=== PATIENT | female | born 1950 | race Caucasian/White ===

== ENCOUNTER 2016-11-21 08:13 | Outpatient (CLI) | payer MEDICARE | END 2016-11-21 08:14 | disposition home or self-care (01) | DX: R19.7 Diarrhea, unspecified (principal) ==

== ENCOUNTER 2017-10-31 08:00 | Outpatient (CLI) | payer MEDICARE ==
[2017-10-31 15:24] LABS: BASOPHILS # (AUTO) 0.1 10^3/uL (0.0-0.1); BASOPHILS % (AUTO) 1.2 %; EOSINOPHILS # (AUTO) 0.1 10^3/uL (0.0-0.7); EOSINOPHILS % (AUTO) 2.1 %; HGB - HEMOGLOBIN 13.6 g/dL (12.0-16.0); LYMPHOCYTES # (AUTO) 2.2 10^3/uL (1.5-3.5); LYMPHOCYTES % (AUTO) 33.7 %; MEAN CORPUSCULAR HGB CONC 34.2 g/dL (32.0-36.0); MEAN CORPUSCULAR VOLUME 96.5 fL (81.0-99.0); MEAN PLATELET VOLUME 9.7 fL (7.9-10.8); MONOCYTES # (AUTO) 0.5 10^3/uL (0.0-1.0); MONOCYTES % (AUTO) 8.1 %; NEUTROPHILS # (AUTO) 3.5 10^3/uL (1.5-6.6); NEUTROPHILS % (AUTO) 54.9 %; RED BLOOD COUNT 4.14 10^6/uL (4.20-5.40); RED CELL DISTRIBUTION WIDTH 12.7 % (12.0-15.0); UNCORRECTED WHITE BLOOD COUNT 6.4 x10^3/uL; WHITE BLOOD COUNT 6.4 x10^3/uL (4.8-10.8)
[2017-10-31 15:36] LABS: ALBUMIN/GLOBULIN RATIO 1.3 (1.0-2.2); BILIRUBIN,TOTAL 0.6 mg/dL (0.2-1.0); BUN - BLOOD UREA NITROGEN 16 mg/dL (6-20); CALCIUM 9.9 mg/dL (8.5-10.3); CARBON DIOXIDE - CO2 29 mmol/L (21-32); CHLORIDE 104 mmol/L (101-111); CHOL/HDL RATIO 3.9 (<4.4); CHOLESTEROL 243 mg/dL; CREATININE 0.6 mg/dL (0.4-1.0); GFR - MDRD 99 (>89); GLUCOSE 113 mg/dL (70-100); HDL CHOLESTEROL 62 mg/dL; LDL/HDL RATIO 2.5 (<4.4); POTASSIUM 4.2 mmol/L (3.5-5.0); SODIUM 139 mmol/L (135-145); TOTAL PROTEIN 7.7 g/dL (6.7-8.2); TRIGLYCERIDES 142 mg/dL; VLDL CHOLESTEROL 28 mg/dL
== END 2017-10-31 08:01 ==
LOC: LAB.WCP 08:00
PROVIDERS: ATTEND Physician Assistant Medical
DX: I10 Essential (primary) hypertension (principal); R05 Cough
CPT/HCPCS: 36415; 80053; 80061; 85025

== ENCOUNTER 2017-12-10 10:31 | Outpatient (CLI) | payer MEDICARE ==
[2017-12-10] MEDS ORDERED: IOPAMIDOL-300 100 ML VIAL ONE (10:51)
[2017-12-10] MEDS ORDERED: IOPAMIDOL-300 50 ML VIAL ONE (10:52)
[2017-12-10 11:02] LABS: CREATININE 0.6 mg/dL (0.4-1.0)
[2017-12-10] MEDS: IOPAMIDOL-300 100 ML VIAL IVP ONE (12:48)
[2017-12-10] MEDS: IOPAMIDOL-300 50 ML VIAL PO ONE (12:48)
--- NOTE | 2017-12-10 18:26 | CT Report ---
DATE OF SERVICE: 12/10/2017 CT ABDOMEN AND PELVIS WITH CONTRAST: 12/10/2017 CLINICAL INDICATION: Bloody diarrhea, abdominal pain, colon cancer. COMPARISON: 05/25/2014 TECHNIQUE: Axial CT images of the abdomen and pelvis were obtained with 100 mL Isovue 300 intravenously as well as oral contrast. In accordance with CT protocol optimization, one or more of the following dose reduction techniques were utilized for this exam: Automated exposure control, adjustment of mA and/or KV based on patient size, or use of iterative reconstructive technique. Limited evaluation of the lung bases demonstrates a small hiatal hernia. ABDOMEN: The liver again demonstrates diffuse fatty infiltration. No intrahepatic biliary dilatation or focal parenchymal lesion is seen. A small hypodensity in the lateral spleen is stable. The pancreas, kidneys and adrenal glands are unremarkable. The gallbladder is not dilated. No bowel dilatation, free gas, or free fluid is present. No abdominal adenopathy is appreciated. PELVIS: Diverticulosis is again seen without CT evidence of diverticulitis. No pelvic adenopathy or free fluid is present. Osseous structures demonstrate degenerative changes. IMPRESSION: STABLE DIVERTICULOSIS, WITHOUT CT EVIDENCE OF DIVERTICULITIS. FATTY INFILTRATION OF THE LIVER. NO ADENOPATHY OR FOCAL HEPATIC LESION. TD: 12/10/2017 18:25
== END 2017-12-10 10:32 | disposition home or self-care (01) ==
LOC: DI 10:31
PROVIDERS: ATTEND Internal Medicine Gastroenterology
DX: K57.30 Diverticulosis of large intestine without perforation or abscess without bleeding (principal); R10.9 Unspecified abdominal pain; C18.2 Malignant neoplasm of ascending colon; K76.0 Fatty (change of) liver, not elsewhere classified
CPT/HCPCS: 36415; 74177; 82565; 84520; Q9967

== ENCOUNTER 2017-12-25 12:55 | Day surgery (SDC) | payer MEDICARE ==
[2017-12-25] MEDS ORDERED: LACTATED RINGERS 1,000 ML IV ONE (13:31)
[2017-12-25] MEDS ORDERED: fentaNYL 100 MCG/2 ML VIAL IVP ONE (14:22)
[2017-12-25] MEDS ORDERED: MIDAZOLAM 2 MG/2 ML VIAL IVP ONE (14:22)
[2017-12-25 15:35] VITALS: BP 142/68
--- NOTE | 2017-12-25 19:01 | PROCEDURE REPORT ---
DATE OF SERVICE: 12/25/2017 Physician: Reggie Juan MD PROCEDURE PERFORMED: Colonoscopy. ENDOSCOPIST: Reggie Juan MD PRIMARY CARE PHYSICIAN: Jenny Casey PA-C INDICATION: History of colon cancer, status post right hemicolectomy. PREMEDICATIONS: Fentanyl 200 mcg,Versed 7 mg IV titration. TOTAL SEDATION TIME: 22 minutes DESCRIPTION OF PROCEDURE: After informed consent was obtained, the patient was placed in the left lateral decubitus position. The video colonoscope was introduced into the rectum and slowly passed the anastomosis. Preparation was good. On slow withdrawal, mucosa was carefully examined. The scope was removed. The patient tolerated the procedure well. BLOOD LOSS: None. ANESTHESIA: None. FINDINGS 1. Normal anastomosis. 2. Scattered diverticulosis. 3. Otherwise negative colonoscopy to cecum. The patient will need followup colonoscopy in 3 years. Of note is that her epigastric pain resolved on ranitidine. cc: Jenny Casey PA-C TD: 12/25/2017 18:59
== END 2017-12-25 12:56 | disposition home or self-care (01) ==
LOC: SDS 12:55
PROVIDERS: ATTEND Internal Medicine Gastroenterology
PROC: 0DJD8ZZ Inspection of Lower Intestinal Tract, Via Natural or Artificial Opening Endoscopic (ICD-10-PCS; principal; 2017-12-25 14:00)
DX: Z12.11 Encounter for screening for malignant neoplasm of colon (principal); Z85.038 Personal history of other malignant neoplasm of large intestine; K57.30 Diverticulosis of large intestine without perforation or abscess without bleeding
CPT/HCPCS: G0105; J7120

== ENCOUNTER 2018-03-12 13:21 | Outpatient (CLI) | payer MEDICARE ==
--- NOTE | 2018-03-12 16:43 | Mammography Report ---
SCREENING MAMMOGRAM: 03/12/2018 CLINICAL INDICATION: A 68-year-old with history of benign biopsy, for screening. COMPARISON: 12/2014, 06/2013, 05/2011, 04/2010 FINDINGS: The breasts demonstrate scattered fibroglandular densities bilaterally. Biopsy marker in the right upper inner central breast is stable. Coarse, typically benign calcifications are present. No suspicious masses, clustered microcalcifications, or regions of architectural distortion are identified. IMPRESSION: BENIGN FINDINGS. RECOMMENDATION: Routine annual screening unless otherwise clinically indicated. BI-RADS CATEGORY 2 BENIGN FINDINGS. STANDARD QUALIFYING STATEMENTS: 1. This examination was reviewed with the aid of Computer-Aided Detection (CAD). 2. A negative or benign imaging report should not delay biopsy if clinically suspicious findings are present. Consider surgical consultation if warranted. More than 5% of cancers are not identified by imaging. 3. Dense breasts may obscure an underlying neoplasm. TD: 03/12/2018 16:41
== END 2018-03-12 13:22 | disposition home or self-care (01) ==
LOC: DI.N 13:21
PROVIDERS: ATTEND Physician Assistant Medical
DX: Z12.31 Encounter for screening mammogram for malignant neoplasm of breast (principal)
CPT/HCPCS: 77067

== ENCOUNTER 2018-06-17 08:20 | Outpatient (CLI) | payer MEDICARE ==
[2018-06-17 13:58] LABS: BASOPHILS # (AUTO) 0.1 10^3/uL (0.0-0.1); BASOPHILS % (AUTO) 1.3 %; EOSINOPHILS # (AUTO) 0.2 10^3/uL (0.0-0.7); EOSINOPHILS % (AUTO) 2.7 %; HGB - HEMOGLOBIN 13.8 g/dL (12.0-16.0); LYMPHOCYTES # (AUTO) 2.1 10^3/uL (1.5-3.5); LYMPHOCYTES % (AUTO) 35.6 %; MEAN CORPUSCULAR HEMOGLOBIN 33.3 pg (27.0-31.0); MEAN CORPUSCULAR HGB CONC 34.5 g/dL (32.0-36.0); MEAN CORPUSCULAR VOLUME 96.6 fL (81.0-99.0); MEAN PLATELET VOLUME 9.4 fL (7.9-10.8); MONOCYTES # (AUTO) 0.5 10^3/uL (0.0-1.0); MONOCYTES % (AUTO) 8.7 %; NEUTROPHILS # (AUTO) 3.1 10^3/uL (1.5-6.6); NEUTROPHILS % (AUTO) 51.7 %; PLT - PLATELET COUNT 290 10^3/uL (130-450); RED BLOOD COUNT 4.15 10^6/uL (4.20-5.40); RED CELL DISTRIBUTION WIDTH 13.2 % (12.0-15.0); WHITE BLOOD COUNT 5.9 x10^3/uL (4.8-10.8)
[2018-06-17 14:13] LABS: ALBUMIN 4.3 g/dL (3.2-5.5); ALBUMIN/GLOBULIN RATIO 1.2 (1.0-2.2); ALKALINE PHOSPHATASE 66 IU/L (42-121); ALT ALANINE AMINOTRANSFERASE 34 IU/L (10-60); AST ASPARTATE AMINOTRANSFERASE 26 IU/L (10-42); BUN - BLOOD UREA NITROGEN 11 mg/dL (6-20); CALCIUM 9.7 mg/dL (8.5-10.3); CARBON DIOXIDE - CO2 29 mmol/L (21-32); CHLORIDE 101 mmol/L (101-111); CHOL/HDL RATIO 3.6 (<4.4); CHOLESTEROL 243 mg/dL; CREATININE 0.6 mg/dL (0.4-1.0); GFR - MDRD 99 (>89); GLUCOSE 115 mg/dL (70-100); HDL CHOLESTEROL 68 mg/dL; LDL CHOLESTEROL,CALCULATED 140 mg/dL; LDL/HDL RATIO 2.1 (<4.4); SODIUM 139 mmol/L (135-145); TOTAL PROTEIN 7.9 g/dL (6.7-8.2); VLDL CHOLESTEROL 35 mg/dL
== END 2018-06-17 08:21 | disposition home or self-care (01) ==
LOC: LAB.WCP 08:20
PROVIDERS: ATTEND Physician Assistant Medical
DX: I10 Essential (primary) hypertension (principal)
CPT/HCPCS: 36415; 80053; 80061; 83721; 85025

== ENCOUNTER 2018-10-08 07:14 | Outpatient (CLI) | payer MEDICARE ==
[2018-10-08 13:54] LABS: CALCIUM 9.8 mg/dL (8.5-10.3); CREATININE 0.6 mg/dL (0.4-1.0)
[2018-10-08 13:56] LABS: HB2 TOTAL 14.3 g/dL; HEMOGLOBIN A1C 0.53 g/dL; HEMOGLOBIN A1C % 5.5 % (4.6-6.2)
== END 2018-10-08 23:59 | disposition home or self-care (01) ==
LOC: LAB.WCP 07:14
PROVIDERS: ATTEND Physician Assistant Medical
DX: R73.09 Other abnormal glucose (principal)
CPT/HCPCS: 36415; 80048; 83036

== ENCOUNTER 2018-10-22 12:54 | Outpatient (CLI) | payer MEDICARE | END 2018-10-22 12:55 | disposition home or self-care (01) | LOC: RT 12:54 | PROVIDERS: ATTEND Physician Assistant Medical | DX: R05 Cough (principal) | CPT/HCPCS: 94010; 94729 ==

== ENCOUNTER 2019-04-27 12:09 | Outpatient (CLI) | payer MEDICARE ==
--- NOTE | 2019-04-28 14:07 | XRAY Report ---
Reason: ANKLE PAIN,RIGHT Procedure Date: 04/27/2019 Accession Number: [id number] / [id number] Procedure: WCP - Ankle 3 View RT CPT Code: FULL RESULT: EXAM: RIGHT ANKLE RADIOGRAPHY EXAM DATE: 04/27/2019 12:18 PM. CLINICAL HISTORY: Chronic lateral malleolus pain. No known injury. COMPARISON: None. TECHNIQUE: 3 views. FINDINGS: Bones: There is mild inferior calcaneal spurring. No fracture is detected. Joints: Remote posttraumatic changes are seen along the inferior medial malleolus. Similarly, osteophytosis along the lateral malleolus is likely posttraumatic. The ankle mortise is symmetric. Soft Tissues: Normal. No soft tissue swelling. IMPRESSION: Posttraumatic changes of the ankle with osteophytosis along the lateral malleolus. RADIA
== END 2019-04-27 12:10 | disposition home or self-care (01) ==
LOC: DI.WCP 12:09
PROVIDERS: ATTEND Physician Assistant
DX: M25.771 Osteophyte, right ankle (principal)

== ENCOUNTER 2019-05-01 14:39 | Outpatient (CLI) | payer MEDICARE ==
[2019-05-01 19:22] LABS: CALCIUM 10.3 mg/dL (8.5-10.3); CREATININE 0.6 mg/dL (0.4-1.0)
[2019-05-01 20:03] LABS: HB2 TOTAL 13.4 g/dL; HEMOGLOBIN A1C 0.55 g/dL; HEMOGLOBIN A1C % 5.9 % (4.6-6.2)
== END 2019-05-01 14:40 | disposition home or self-care (01) ==
LOC: LAB.WCP 14:39
PROVIDERS: ATTEND Physician Assistant Medical
DX: R73.03 Prediabetes (principal)
CPT/HCPCS: 36415; 80048; 83036

== ENCOUNTER 2019-06-19 09:10 | Outpatient (CLI) | payer MEDICARE ==
--- NOTE | 2019-06-22 12:16 | Mammography Report ---
Reason: SCREENING MAMMO Procedure Date: 06/19/2019 Accession Number: [id number] / [id number] Procedure: MGN - Screening Mammo Dig Bilat CPT Code: FULL RESULT: EXAM: Screening Mammo Dig Bilat DATE: 06/19/2019 9:32 AM CLINICAL HISTORY: Routine screening. Personal history of colon cancer. No reported personal or family history of breast cancer. History of prior benign right breast biopsy. TECHNIQUE: (B) - Bilateral CC and MLO views were obtained. COMPARISON: 12/28/2014 and 06/09/2013. PARENCHYMAL PATTERN: (A) - The breasts demonstrate scattered fibroglandular densities bilaterally. FINDINGS: Bilateral breasts: Stable biopsy marker medial upper right breast. There are no suspicious masses, calcifications, or areas of distortion. IMPRESSION: Benign findings. BI-RADS category 2. RECOMMENDATION: (ANNUAL) - Recommend routine annual screening mammography. BI-RADS CATEGORY: (2) - Benign Findings. STANDARD QUALIFYING STATEMENTS: 1. This examination was not reviewed with the aid of Computer-Aided Detection (CAD). 2. A negative or benign imaging report should not preclude biopsy if clinically suspicious findings are present. 3. Dense breasts may obscure an underlying neoplasm. 4. This examination was reviewed without the aid of 3D breast imaging (tomosynthesis).
== END 2019-06-19 09:11 | disposition home or self-care (01) ==
LOC: DI.N 09:10
DX: Z12.31 Encounter for screening mammogram for malignant neoplasm of breast (principal); Z85.038 Personal history of other malignant neoplasm of large intestine
CPT/HCPCS: 77067

== ENCOUNTER 2020-05-02 08:44 | Outpatient (CLI) | payer MEDICARE ==
[2020-05-02 12:51] LABS: BASOPHILS # (AUTO) 0.1 10^3/uL (0.0-0.1); BASOPHILS % (AUTO) 1.5 %; EOSINOPHILS # (AUTO) 0.2 10^3/uL (0.0-0.7); EOSINOPHILS % (AUTO) 2.4 %; HGB - HEMOGLOBIN 13.7 g/dL (12.0-16.0); LYMPHOCYTES # (AUTO) 2.2 10^3/uL (1.5-3.5); MEAN CORPUSCULAR HEMOGLOBIN 32.2 pg (27.0-31.0); MEAN CORPUSCULAR HGB CONC 33.7 g/dL (32.0-36.0); MEAN CORPUSCULAR VOLUME 95.8 fL (81.0-99.0); MEAN PLATELET VOLUME 11.4 fL (7.9-10.8); MONOCYTES # (AUTO) 0.6 10^3/uL (0.0-1.0); MONOCYTES % (AUTO) 8.8 %; NEUTROPHILS # (AUTO) 3.7 10^3/uL (1.5-6.6); NEUTROPHILS % (AUTO) 54.9 %; PLT - PLATELET COUNT 346 10^3/uL (130-450); RED BLOOD COUNT 4.25 10^6/uL (4.20-5.40); RED CELL DISTRIBUTION WIDTH 12.8 % (12.0-15.0); WHITE BLOOD COUNT 6.7 x10^3/uL (4.8-10.8)
[2020-05-02 13:02] LABS: ALBUMIN 4.9 g/dL (3.2-5.5); ALBUMIN/GLOBULIN RATIO 1.6 (1.0-2.2); ALKALINE PHOSPHATASE 89 IU/L (42-121); ALT ALANINE AMINOTRANSFERASE 36 IU/L (10-60); AST ASPARTATE AMINOTRANSFERASE 30 IU/L (10-42); BUN - BLOOD UREA NITROGEN 12 mg/dL (6-20); CALCIUM 9.9 mg/dL (8.5-10.3); CARBON DIOXIDE - CO2 26 mmol/L (21-32); CHLORIDE 102 mmol/L (101-111); CHOL/HDL RATIO 3.1 (<4.4); CHOLESTEROL 223 mg/dL; CREATININE 0.6 mg/dL (0.4-1.0); GLUCOSE 127 mg/dL (70-100); HDL CHOLESTEROL 73 mg/dL; LDL CHOLESTEROL,CALCULATED 118 mg/dL; LDL/HDL RATIO 1.6 (<4.4); SODIUM 137 mmol/L (135-145); VLDL CHOLESTEROL 32 mg/dL
[2020-05-02 13:17] LABS: HB2 TOTAL 14.2 g/dL; HEMOGLOBIN A1C 0.63 g/dL; HEMOGLOBIN A1C % 6.2 % (4.6-6.2)
== END 2020-05-02 23:59 | disposition home or self-care (01) ==
LOC: LAB.WCP 08:44
PROVIDERS: ATTEND Physician Assistant
DX: I10 Essential (primary) hypertension (principal); Z79.899 Other long term (current) drug therapy; R73.03 Prediabetes; R10.30 Lower abdominal pain, unspecified
CPT/HCPCS: 36415; 80053; 80061; 83036; 83721; 85025; 87086

== ENCOUNTER 2020-06-16 10:00 | Outpatient (CLI) | payer MEDICARE | END 2020-06-16 23:59 | disposition home or self-care (01) | LOC: LAB.R 10:00 | PROVIDERS: ATTEND Nurse Practitioner Family | DX: N39.0 Urinary tract infection, site not specified (principal) | CPT/HCPCS: 87077; 87086; 87181 ==

== ENCOUNTER 2020-06-30 07:00 | Outpatient (CLI) | payer MEDICARE | END 2020-06-30 23:59 | disposition home or self-care (01) | LOC: LAB.R 07:00 | PROVIDERS: ATTEND Physician Assistant Medical | DX: N39.0 Urinary tract infection, site not specified (principal) | CPT/HCPCS: 87086 ==

== ENCOUNTER 2020-07-04 08:13 | Outpatient (CLI) | payer MEDICARE ==
--- NOTE | 2020-07-04 10:43 | DEXA Report ---
PROCEDURE: Dexa Spine and/or Hip INDICATIONS: POST MENOPAUSAL TECHNIQUE: Dual energy x-ray absorptiometry (DXA) was performed on a [employer] System. Regions measur ed are the AP Spine, femoral neck, and if needed forearm. COMPARISON: Prior bone densitometry 04/20/2015 utilizing different methodology reviewed. FINDINGS: Lumbar Spine: Bone Mineral Density 1.128 g/cm/cm,T score -0.4, normal Left Hip: Bone Mineral Density 0.8-0 g/cm/cm,T score -1.5, osteopenia Left Femoral Neck: Bone Mineral Density 0.843 g/cm/cm, T score -1.4, osteopenia (T score greater or equal to -1.0: NORMAL) (T score from -1.1 to -2.4: OSTEOPENIA) (T score less than or equal to -2.5 to: OSTEOPOROSIS) Impression: Normal bone densitometry findings at the lumbosacral spine, mild osteopenia over the left hip region and the left femoral neck. Patients with diagnosis of osteoporosis or osteopenia should have regular bone mineral density assess ment. For those eligible for Medicare, routine testing is allowed once every 2 years. Testing frequ ency can be increased for patients who have rapidly progressing disease or for those who are receivin g medical therapy to restore bone mass. Reviewed by: Yaakov Church MD on 07/04/2020 10:42 AM PDT Approved by: Yaakov Church MD on 07/04/2020 10:42 AM PDT Station ID: [id number]
== END 2020-07-04 08:14 | disposition home or self-care (01) ==
LOC: DI 08:13
PROVIDERS: ATTEND Physician Assistant Medical
DX: M85.89 Other specified disorders of bone density and structure, multiple sites (principal)
CPT/HCPCS: 77080

== ENCOUNTER 2020-07-14 10:46 | Outpatient (CLI) | payer MEDICARE ==
[2020-07-14] MEDS ORDERED: IOVERSOL 320 50 ML VIAL ONE (10:58)
[2020-07-14] MEDS ORDERED: IOVERSOL 320 100 ML VIAL IVP ONE ×2 (10:58→13:29)
[2020-07-14 11:13] LABS: CALCIUM 10.2 mg/dL (8.5-10.3); CREATININE 0.7 mg/dL (0.4-1.0)
[2020-07-14] MEDS ORDERED: IOVERSOL 320 50 ML VIAL PO ONE (13:29)
--- NOTE | 2020-07-14 14:40 | CT Report ---
PROCEDURE: Abdomen/Pelvis W INDICATIONS: SUPRAPUBIC PAIN CONTRAST: IV CONTRAST: Optiray 320 ml: 100 PO CONTRAST: Optiray 320 ml50 TECHNIQUE: After the administration of oral and intravenous contrast, 5 mm thick sections acquired from the diap hragms to the symphysis. 5 mm thick coronal and sagittal reformats were acquired. For radiation dos e reduction, the following was used: automated exposure control, adjustment of mA and/or kV accordin g to patient size. COMPARISON: CT abdomen/pelvis 12/10/2017 FINDINGS: Image quality: Excellent. ABDOMEN: Lung bases: Lung bases are clear. Heart size is normal. Solid organs: There is fatty infiltration of the liver. The gallbladder appears normal. No significan t biliary ductal dilatation is seen. There is mild fatty infiltration of the pancreas. A stable low-d ensity lesion is seen in the peripheral portion of the spleen that is most likely benign. The spleen is normal in size. The adrenals appear normal. A heterogeneously enhancing mass is seen in the interpolar region of the left kidney that measures ap proximately 4.6 x 3.4 x 4.6 cm, suspicious for renal cell carcinoma. No other renal mass is seen. The re is no hydronephrosis. Peritoneum and bowel: Scattered diverticula are seen in the colon without signs of acute diverticuli tis. Status post right hemicolectomy. No signs of bowel obstruction. No free fluid or air. Nodes and vessels: No retroperitoneal or mesenteric adenopathy by size criteria. Aorta and inferior vena cava are normal in size. There is prominence of the ovarian veins bilaterally that is more pro minent on the left, which is nonspecific but may be seen in the setting of pelvic congestion syndrome . Miscellaneous: No ventral hernias. PELVIS: Genitourinary: Bladder wall thickness is normal. A mildly exophytic fibroid is seen in the uterine fundus. No adnexal mass is seen. Miscellaneous: No inguinal hernias or adenopathy. Bones: No suspicious bony lesions. No vertebral body compression fractures. Mild degenerative garcia ges are seen in the pubic symphysis and sacroiliac joints as well as the lower lumbar spine. IMPRESSION: 1. No acute abnormality is identified in the abdomen or pelvis. 2. Heterogeneously enhancing mass in the interpolar region of the left kidney measures up to 4.6 cm in maximum dimension, suspicious for renal cell carcinoma. Recommend Urology consultation. Dedicated renal protocol MRI or CT may be obtained for further characterization. 3. Prominence of the gonadal veins in the pelvis is nonspecific, but can be seen in the setting of p elvic congestion syndrome. 4. Fibroid uterus. 5. Colonic diverticulosis without signs of acute diverticulitis. Reviewed by: Martín Taylor MD on 07/14/2020 2:38 PM PDT Approved by: Martín Taylor MD on 07/14/2020 2:38 PM PDT Station ID: [id number]
== END 2020-07-14 10:47 | disposition home or self-care (01) ==
LOC: LAB 10:46
PROVIDERS: ATTEND Physician Assistant Medical
DX: N28.89 Other specified disorders of kidney and ureter (principal); R93.89 Abnormal findings on diagnostic imaging of other specified body structures; D25.9 Leiomyoma of uterus, unspecified; K57.30 Diverticulosis of large intestine without perforation or abscess without bleeding; R10.30 Lower abdominal pain, unspecified
CPT/HCPCS: 36415; 74177; 80048; Q9967

== ENCOUNTER 2020-08-09 08:14 | Outpatient (CLI) | payer MEDICARE ==
[2020-08-09] MEDS ORDERED: GADOBUTROL 7.5 MMOL/7.5 ML VIAL ONE (08:36)
[2020-08-09] MEDS ORDERED: GADOBUTROL 7.5 MMOL/7.5 ML VIAL IVP ONE (09:39)
--- NOTE | 2020-08-09 12:41 | MRI Report ---
PROCEDURE: Abdomen W/WO INDICATIONS: RENAL MASS CONTRAST: IV CONTRAST: Gadavist ml: 7 TECHNIQUE: Coronal ultra fast SE, axial 2D spoiled GE in- and ojc-bh-nztti; axial breath-hold T2 fast SE. Dynam ic axial ultra fast GE during the administration of contrast; post-contrast coronal ultra fast GE or 2D spoiled GE with fat saturation from the hepatic dome to the iliac crests. Optional diffusion weig hted imaging and ADC may be performed. COMPARISON: CT scanning 07/14/2020 through the abdomen/pelvis FINDINGS: Image quality: Excellent. Lung bases: No basal pleural effusions. Heart size is normal. Solid organs: Liver and spleen are normal in size and enhancement. Gallbladder appears normal Bili taz system is non dilated. Pancreas is normal in morphology. No adrenal nodules. The right kidney d emonstrates normal size and enhancement, without hydronephrosis. The left kidney contains a malignan t-appearing mass that measures up to 5.4 cm oblique AP, approximately 4.9 cm craniocaudad and 4.5 cm transverse. This mass is located with its epicenter at approximately the junction of the uymqno-sb-yo wer third of the left renal cortex, and extends into the renal sinus fat to approximately the level o f the mid kidney. There is no sign of direct invasion through the renal capsule into the perirenal fa t, or extension into the renal vein.. Nodes and vessels: No retroperitoneal or mesenteric adenopathy by size criteria. Aorta and inferior vena cava are normal in size. Bowel and peritoneum: Unenhanced bowel loops are normal in caliber. No free fluid. Bones and soft tissues: No ventral hernias. Bone marrow is normal in overall signal. IMPRESSION: Moderately large malignant appearing left renal cortical mass measuring up to 5.4 x 4.9 x 4.5 cm with out evidence of metastatic disease or direct invasion through the renal capsule. Renal vein involveme nt is not seen. Urological surgical consultation is recommended. Reviewed by: Yaakov Church MD on 08/09/2020 12:40 PM PDT Approved by: Yaakov Church MD on 08/09/2020 12:40 PM PDT Station ID: [id number]
== END 2020-08-09 08:15 | disposition home or self-care (01) ==
LOC: DI 08:14
PROVIDERS: ATTEND Physician Assistant Medical
DX: N28.89 Other specified disorders of kidney and ureter (principal)
CPT/HCPCS: 74183; A9585

== ENCOUNTER 2020-12-05 08:00 | Outpatient (CLI) | payer MEDICARE ==
[2020-12-05 12:23] LABS: CALCIUM 10.3 mg/dL (8.5-10.3)
== END 2020-12-05 23:59 | disposition home or self-care (01) ==
LOC: LAB.WCP 08:00
PROVIDERS: ATTEND Physician Assistant
DX: I10 Essential (primary) hypertension (principal)
CPT/HCPCS: 36415; 80048; 81599; 82330

== ENCOUNTER 2021-03-07 08:43 | Outpatient (CLI) | payer MEDICARE ==
--- NOTE | 2021-03-08 12:16 | Mammography Report ---
BILATERAL DIGITAL SCREENING MAMMOGRAM 3D/2D: 03/07/2021 CLINICAL: Routine screening. Comparison is made to exams dated: 06/19/2019 mammogram, 03/12/2018 mammogram, 01/13/2015 mammogram, 01/02 ultrasound, 12/28/2014 mammogram, and 06/09/2013 mammogram - [facility]. There are scattered fibroglandular elements in both breasts. There is a biopsy clip in the right breast. No significant masses, calcifications, or other findings are seen in either breast. There has been no significant interval change. IMPRESSION: NEGATIVE There is no mammographic evidence of malignancy. A 1 year screening mammogram is recommended. This exam was interpreted at Station ID: [id number]. NOTE: For mammograms, a report in lay terms will be sent to the patient. Approximately 15% of breast malignancies will not be visualized mammographically. In the management of a palpable breast mass, a negative mammogram must not discourage biopsy of a clinically suspicious lesion. Electronically Signed By: Stuart Sequeira M.D. ddradha/tristian:03/07/2021 09:35:20 ACR BI-RADS Category 1: Negative 3341F PARENCHYMAL PATTERN: (A) - The breast(s) demonstrate(s) scattered fibroglandular densities. BI-RADS CATEGORY: (1) - 1 RECOMMENDATION: (ANNUAL) - Recommend routine annual screening mammography. [id number] 1 year screening LATERALITY: (B)
== END 2021-03-07 08:44 | disposition home or self-care (01) ==
LOC: DI.N 08:43
DX: Z12.31 Encounter for screening mammogram for malignant neoplasm of breast (principal)

== ENCOUNTER 2021-03-27 08:00 | Outpatient (CLI) | payer MEDICARE ==
[2021-03-27 12:05] LABS: BASOPHILS # (AUTO) 0.1 10^3/uL (0.0-0.1); BASOPHILS % (AUTO) 1.3 %; EOSINOPHILS # (AUTO) 0.2 10^3/uL (0.0-0.7); EOSINOPHILS % (AUTO) 3.1 %; HGB - HEMOGLOBIN 13.5 g/dL (12.0-16.0); LYMPHOCYTES # (AUTO) 2.1 10^3/uL (1.5-3.5); LYMPHOCYTES % (AUTO) 38.3 %; MEAN CORPUSCULAR HGB CONC 33.8 g/dL (32.0-36.0); MEAN CORPUSCULAR VOLUME 97.8 fL (81.0-99.0); MEAN PLATELET VOLUME 11.3 fL (7.9-10.8); MONOCYTES # (AUTO) 0.5 10^3/uL (0.0-1.0); NEUTROPHILS # (AUTO) 2.6 10^3/uL (1.5-6.6); NEUTROPHILS % (AUTO) 47.9 %; PLT - PLATELET COUNT 287 10^3/uL (130-450); RED BLOOD COUNT 4.09 10^6/uL (4.20-5.40); WHITE BLOOD COUNT 5.5 x10^3/uL (4.8-10.8)
[2021-03-27 12:33] LABS: ALBUMIN 4.6 g/dL (3.2-5.5); ALBUMIN/GLOBULIN RATIO 1.4 (1.0-2.2); BILIRUBIN,TOTAL 0.7 mg/dL (0.2-1.0); CALCIUM 10.1 mg/dL (8.5-10.3); CREATININE 0.9 mg/dL (0.4-1.0); POTASSIUM 4.1 mmol/L (3.5-5.0); TOTAL PROTEIN 7.9 g/dL (6.7-8.2)
== END 2021-03-27 23:59 | disposition home or self-care (01) ==
LOC: LAB.WCP 08:00
PROVIDERS: ATTEND Physician Assistant Medical
DX: I10 Essential (primary) hypertension (principal)
CPT/HCPCS: 36415; 80053; 85025

== ENCOUNTER 2022-01-11 08:19 | Outpatient (CLI) | payer MEDICARE ==
[2022-01-11 12:34] LABS: ALBUMIN 4.6 g/dL (3.2-5.5); ALBUMIN/GLOBULIN RATIO 1.4 (1.0-2.2); ALKALINE PHOSPHATASE 97 IU/L (42-121); ALT ALANINE AMINOTRANSFERASE 21 IU/L (10-60); AST ASPARTATE AMINOTRANSFERASE 20 IU/L (10-42); BILIRUBIN,TOTAL 0.6 mg/dL (0.2-1.0); BUN - BLOOD UREA NITROGEN 17 mg/dL (6-20); CARBON DIOXIDE - CO2 26 mmol/L (21-32); CHLORIDE 104 mmol/L (101-111); CHOL/HDL RATIO 4.5 (<4.4); CHOLESTEROL 276 mg/dL; CREATININE 1.1 mg/dL (0.4-1.0); ESTIMATED AVERAGE GLUCOSE 128 mg/dL (70-100); GFR - MDRD 49 (>89); GLUCOSE 119 mg/dL (70-100); HDL CHOLESTEROL 61 mg/dL; HEMOGLOBIN A1c% 6.1 % (4.27-6.07); LDL CHOLESTEROL,CALCULATED 178 mg/dL; LDL/HDL RATIO 2.9 (<4.4); POTASSIUM 4.1 mmol/L (3.5-5.0); SODIUM 140 mmol/L (135-145); TOTAL PROTEIN 7.9 g/dL (6.7-8.2); TRIGLYCERIDES 185 mg/dL; VLDL CHOLESTEROL 37 mg/dL
== END 2022-01-11 08:20 | disposition home or self-care (01) ==
LOC: LAB.N 08:19
PROVIDERS: ATTEND Physician Assistant Medical
DX: I10 Essential (primary) hypertension (principal); R73.03 Prediabetes
CPT/HCPCS: 36415; 80053; 80061; 83036; 83721

== ENCOUNTER 2022-05-16 15:12 | Outpatient (CLI) | payer MEDICARE ==
--- NOTE | 2022-05-17 12:29 | Mammography Report ---
BILATERAL DIGITAL SCREENING MAMMOGRAM 3D/2D: 05/16/2022 CLINICAL: Routine screening. Comparison is made to exams dated: 03/07/2021 mammogram, 06/19/2019 mammogram, and 03/12/2018 mammogram - [facility]. There are scattered fibroglandular elements in both breasts. There is a biopsy clip in the right breast. No significant masses, calcifications, or other findings are seen in either breast. There has been no significant interval change. IMPRESSION: NEGATIVE There is no mammographic evidence of malignancy. A 1 year screening mammogram is recommended. Based on the Tyrer Cuzick model (a risk assessment model) the patients lifetime risk is 3.2% and her 10 year risk is 2.8%. According to the ACR, ACS, and NCCN guidelines, an annual breast MRI exam alejandro g with mammogram is recommended if the patients lifetime risk is 20% or greater. This exam was interpreted at Station ID: [id number]. NOTE: For mammograms, a report in lay terms will be sent to the patient. Approximately 15% of breast malignancies will not be visualized mammographically. In the management of a palpable breast mass, a negative mammogram must not discourage biopsy of a clinically suspicious lesion. Electronically Signed By: Martín cyr/tristian:05/17/2022 10:34:52 ACR BI-RADS Category 1: Negative 3341F PARENCHYMAL PATTERN: (A) - The breast(s) demonstrate(s) scattered fibroglandular densities. BI-RADS CATEGORY: (1) - 1 RECOMMENDATION: (ANNUAL) - Recommend routine annual screening mammography. [id number] 1 year screening LATERALITY: (B)
== END 2022-05-16 15:13 | disposition home or self-care (01) ==
LOC: DI.N 15:12
DX: Z12.31 Encounter for screening mammogram for malignant neoplasm of breast (principal)

== ENCOUNTER 2022-10-05 08:04 | Outpatient (CLI) | payer MEDICARE ==
--- NOTE | 2022-10-05 11:33 | Ultrasound Report ---
PROCEDURE: Abdomen Complete INDICATIONS: ABD PAIN TECHNIQUE: Real-time scanning was performed of the abdominal and retroperitoneal organs, with image documentatio n. COMPARISON: CT abdomen and pelvis, 07/14/2020. Ultrasound abdomen, 05/26/2015. FINDINGS: Liver: Liver is normal in size and demonstrates increased echotexture. Portal vein is patent with h epatopedal flow. Gallbladder: Colitis normal. No gallstones, gallbladder wall thickening, pericholecystic fluid collec tion or sonographic Kaiser sign. Biliary ducts: Intrahepatic bile ducts are non-dilated. Extrahepatic bile duct caliber measures 5.5 mm. Normal is 6-7 mm or less in diameter, or 10 mm or less post-cholecystectomy. Pancreas: Visualized portions of the pancreas are sonographically normal. Spleen: Spleen is normal in size and homogeneous in echotexture. Kidneys: Left kidney is surgically absent. Right kidney measures 12.9 cm long and demonstrates tere l echotexture. No hydronephrosis or nephrolithiasis. No solid masses. Aorta: Visualized aorta is normal in caliber at less than 3 cm. Iliacs: Proximal common iliac arteries are normal in caliber at less than 2.5 cm. IVC: Intrahepatic inferior vena cava is patent. Miscellaneous: No free abdominal fluid. IMPRESSION: 1. Increased hepatic echotexture most likely secondary to hepatic fatty infiltration. Other hepatocel lular disease could have a similar sonographic appearance. Please correlate with liver function tests . 2. Left nephrectomy. 3. Normal ultrasound appearance of right kidney. No renal masses. No stones or hydronephrosis. 4. A cause for abdominal pain is identified on ultrasound. If clinically indicated, CT would be helpf ul. Reviewed by: Daniela Garcia MD on 10/05/2022 11:32 AM [facility] Approved by: Daniela Garcia MD on 10/05/2022 11:32 AM PST Station ID: [id number]
== END 2022-10-05 08:05 | disposition home or self-care (01) ==
LOC: DI 08:04
PROVIDERS: ATTEND Physician Assistant Medical
DX: R10.11 Right upper quadrant pain (principal)

== ENCOUNTER 2022-10-16 08:15 | Outpatient (CLI) | payer MEDICARE ==
[2022-10-16 08:26] LABS: BASOPHILS # (AUTO) 0.1 10^3/uL (0.0-0.1); BASOPHILS % (AUTO) 1.7 %; EOSINOPHILS # (AUTO) 0.2 10^3/uL (0.0-0.7); EOSINOPHILS % (AUTO) 3.6 %; HCT - HEMATOCRIT 42.2 % (37.0-47.0); HGB - HEMOGLOBIN 13.9 g/dL (12.0-16.0); LYMPHOCYTES # (AUTO) 2.2 10^3/uL (1.5-3.5); LYMPHOCYTES % (AUTO) 34.4 %; MEAN CORPUSCULAR HEMOGLOBIN 32.2 pg (27.0-31.0); MEAN CORPUSCULAR HGB CONC 32.9 g/dL (32.0-36.0); MEAN CORPUSCULAR VOLUME 97.7 fL (81.0-99.0); MEAN PLATELET VOLUME 10.6 fL (7.9-10.8); MONOCYTES # (AUTO) 0.6 10^3/uL (0.0-1.0); MONOCYTES % (AUTO) 9.5 %; NEUTROPHILS # (AUTO) 3.2 10^3/uL (1.5-6.6); NEUTROPHILS % (AUTO) 50.5 %; PLT - PLATELET COUNT 332 10^3/uL (130-450); RED BLOOD COUNT 4.32 10^6/uL (4.20-5.40); RED CELL DISTRIBUTION WIDTH 12.2 % (12.0-15.0); WHITE BLOOD COUNT 6.3 x10^3/uL (4.8-10.8)
[2022-10-16 08:44] LABS: ALBUMIN 4.5 g/dL (3.2-5.5); ALBUMIN/GLOBULIN RATIO 1.3 (1.0-2.2); ALKALINE PHOSPHATASE 91 IU/L (42-121); ALT ALANINE AMINOTRANSFERASE 20 IU/L (10-60); AST ASPARTATE AMINOTRANSFERASE 19 IU/L (10-42); BUN - BLOOD UREA NITROGEN 18 mg/dL (6-20); CALCIUM 9.9 mg/dL (8.5-10.3); CARBON DIOXIDE - CO2 24 mmol/L (21-32); CHLORIDE 103 mmol/L (101-111); CHOLESTEROL 312 mg/dL; CREATININE 0.9 mg/dL (0.4-1.0); GFR - MDRD 61 (>89); GLUCOSE 129 mg/dL (70-100); HDL CHOLESTEROL 63 mg/dL; LDL CHOLESTEROL,CALCULATED 216 mg/dL; LDL/HDL RATIO 3.4 (<4.4); POTASSIUM 3.8 mmol/L (3.5-5.0); SODIUM 138 mmol/L (135-145); TRIGLYCERIDES 165 mg/dL; VLDL CHOLESTEROL 33 mg/dL
== END 2022-10-16 08:16 | disposition home or self-care (01) ==
LOC: LAB 08:15
PROVIDERS: ATTEND Physician Assistant Medical
DX: J30.9 Allergic rhinitis, unspecified (principal); E78.5 Hyperlipidemia, unspecified
CPT/HCPCS: 36415; 80053; 80061; 83721; 85025

== ENCOUNTER 2023-01-15 08:03 | Outpatient (CLI) | payer MEDICARE ==
[2023-01-15 08:44] LABS: ALBUMIN 4.3 g/dL (3.2-5.5); ALBUMIN/GLOBULIN RATIO 1.2 (1.0-2.2); ALKALINE PHOSPHATASE 82 IU/L (42-121); ALT ALANINE AMINOTRANSFERASE 24 IU/L (10-60); AST ASPARTATE AMINOTRANSFERASE 18 IU/L (10-42); BILIRUBIN,TOTAL 0.6 mg/dL (0.2-1.0); BUN - BLOOD UREA NITROGEN 19 mg/dL (6-20); CALCIUM 9.4 mg/dL (8.5-10.3); CARBON DIOXIDE - CO2 26 mmol/L (21-32); CHLORIDE 105 mmol/L (101-111); CHOL/HDL RATIO 4.5 (<4.4); CHOLESTEROL 261 mg/dL; CREATININE 0.9 mg/dL (0.4-1.0); GFR - MDRD 61 (>89); GLUCOSE 117 mg/dL (70-100); HDL CHOLESTEROL 58 mg/dL; LDL CHOLESTEROL,CALCULATED 156 mg/dL; LDL/HDL RATIO 2.7 (<4.4); POTASSIUM 3.8 mmol/L (3.5-5.0); SODIUM 139 mmol/L (135-145); TOTAL PROTEIN 7.8 g/dL (6.7-8.2); TRIGLYCERIDES 235 mg/dL; VLDL CHOLESTEROL 47 mg/dL
[2023-01-15 11:01] LABS: ESTIMATED AVERAGE GLUCOSE 128 mg/dL (70-100); HEMOGLOBIN A1c% 6.1 % (4.27-6.07)
== END 2023-01-15 08:04 | disposition home or self-care (01) ==
LOC: LAB 08:03
PROVIDERS: ATTEND Physician Assistant
DX: E78.5 Hyperlipidemia, unspecified (principal); R73.03 Prediabetes
CPT/HCPCS: 36415; 80053; 80061; 83036; 83721

== ENCOUNTER 2023-07-02 07:47 | Outpatient (CLI) | payer MEDICARE ==
[2023-07-02 08:28] LABS: CALCIUM 10.2 mg/dL (8.5-10.3); CREATININE 0.9 mg/dL (0.6-1.3); POTASSIUM 4.3 mmol/L (3.5-4.5)
== END 2023-07-02 07:48 | disposition home or self-care (01) ==
LOC: LAB 07:47
PROVIDERS: ATTEND Physician Assistant Medical
DX: R94.4 Abnormal results of kidney function studies (principal)
CPT/HCPCS: 36415; 80048

== ENCOUNTER 2023-08-13 10:30 | Outpatient (CLI) | payer MEDICARE | END 2023-08-13 10:45 | disposition home or self-care (01) | LOC: LAB.N 10:30 | PROVIDERS: ATTEND Family Medicine | DX: N76.6 Ulceration of vulva (principal); L30.4 Erythema intertrigo | CPT/HCPCS: 87070; 87077; 87181; 87205; 87255 ==

== ENCOUNTER 2023-12-30 08:23 | Outpatient (CLI) | payer MEDICARE ==
[2023-12-30 08:36] LABS: BASOPHILS # (AUTO) 0.1 10^3/uL (0.0-0.1); BASOPHILS % (AUTO) 1.2 %; EOSINOPHILS # (AUTO) 0.2 10^3/uL (0.0-0.7); EOSINOPHILS % (AUTO) 2.6 %; HCT - HEMATOCRIT 41.5 % (37.0-47.0); HGB - HEMOGLOBIN 13.7 g/dL (12.0-16.0); LYMPHOCYTES % (AUTO) 35.3 %; MEAN CORPUSCULAR HEMOGLOBIN 32.3 pg (27.0-31.0); MEAN CORPUSCULAR VOLUME 97.9 fL (81.0-99.0); MEAN PLATELET VOLUME 10.5 fL (7.9-10.8); MONOCYTES # (AUTO) 0.5 10^3/uL (0.0-1.0); NEUTROPHILS % (AUTO) 51.7 %; PLT - PLATELET COUNT 281 10^3/uL (130-450); RED BLOOD COUNT 4.24 10^6/uL (4.20-5.40); RED CELL DISTRIBUTION WIDTH 12.4 % (12.0-15.0); WHITE BLOOD COUNT 5.8 x10^3/uL (4.8-10.8)
[2023-12-30 08:54] LABS: ALBUMIN 4.5 g/dL (3.2-5.5); ALBUMIN/GLOBULIN RATIO 1.6 (1.0-2.2); ALKALINE PHOSPHATASE 75 IU/L (42-121); ALT ALANINE AMINOTRANSFERASE 20 IU/L (10-60); AST ASPARTATE AMINOTRANSFERASE 15 IU/L (10-42); BILIRUBIN,TOTAL 0.6 mg/dL (0.2-1.0); BUN - BLOOD UREA NITROGEN 16 mg/dL (6-20); CALCIUM 10.2 mg/dL (8.5-10.3); CARBON DIOXIDE - CO2 28 mmol/L (21-32); CHLORIDE 105 mmol/L (101-111); CHOL/HDL RATIO 4.2 (<4.4); CHOLESTEROL 250 mg/dL; CREATININE 0.9 mg/dL (0.6-1.3); GFR - MDRD 61 (>89); GLUCOSE 111 mg/dL (74-104); HDL CHOLESTEROL 59 mg/dL; LDL CHOLESTEROL,CALCULATED 142 mg/dL; LDL/HDL RATIO 2.4 (<4.4); POTASSIUM 4.4 mmol/L (3.5-4.5); SODIUM 138 mmol/L (135-145); TOTAL PROTEIN 7.4 g/dL (6.4-8.9); TRIGLYCERIDES 246 mg/dL (48-352); VLDL CHOLESTEROL 49 mg/dL
[2023-12-30 11:33] LABS: ESTIMATED AVERAGE GLUCOSE 126 mg/dL (70-100)
== END 2023-12-30 08:24 | disposition home or self-care (01) ==
LOC: LAB 08:23
PROVIDERS: ATTEND Physician Assistant Medical
DX: E78.5 Hyperlipidemia, unspecified (principal); R73.03 Prediabetes; J30.9 Allergic rhinitis, unspecified
CPT/HCPCS: 36415; 80053; 80061; 83036; 83721; 85025

== ENCOUNTER 2024-05-11 12:43 | Outpatient (CLI) | payer MEDICARE ==
--- NOTE | 2024-05-11 17:51 | Ultrasound Report ---
Renal (Retroperitoneal) HISTORY: RENAL CELL CARCINOMA COMPARISON: None. TECHNIQUE: Ultrasound of the kidneys was performed. FINDINGS: Right Kidney: 12.2 cm in length. 1.4 cm in cortical thickness. Normal echogenicity. No hydronephrosi s or renal stone. Left Kidney : status post left nephrectomy. Urinary Bladder:Prevoid volume of 220 mL. Postvoid residual of 6 mL. Bilateral ureter jets are noted. Additional Findings: IMPRESSION: 1.Status post left nephrectomy. Unremarkable right kidney. Reviewed by: Melonie Stanley MD on 05/11/2024 5:50 PM PDT Approved by: Melonie Stanley MD on 05/11/2024 5:50 PM PDT Station ID: [id number]
== END 2024-05-11 12:44 | disposition home or self-care (01) ==
LOC: DI 12:43
PROVIDERS: ATTEND Physician Assistant
DX: C64.9 Malignant neoplasm of unspecified kidney, except renal pelvis (principal); Z90.5 Acquired absence of kidney

== ENCOUNTER 2024-05-11 13:07 | Outpatient (CLI) | payer MEDICARE ==
--- NOTE | 2024-05-11 16:17 | XRAY Report ---
PROCEDURE: Chest 2V INDICATIONS: RENAL CELL CARCINOMA TECHNIQUE: 2 views of the chest were acquired. COMPARISON: Chest x-ray 10/15/2018 FINDINGS: Surgical changes and devices: None. Lungs and pleura: No pleural effusions or pneumothorax. Lungs are clear. Mediastinum: Mediastinal contours appear normal. Heart size is normal. Bones and chest wall: No suspicious bony lesions. Overlying soft tissues appear unremarkable. IMPRESSION: No acute cardiopulmonary process. Reviewed by: Roberta aBl MD on 05/11/2024 4:15 PM PDT Approved by: Roberta Bal MD on 05/11/2024 4:15 PM PDT Station ID: [id number]
== END 2024-05-11 13:08 | disposition home or self-care (01) ==
LOC: DI 13:07
PROVIDERS: ATTEND Physician Assistant
DX: C64.9 Malignant neoplasm of unspecified kidney, except renal pelvis (principal)

== ENCOUNTER 2024-05-15 12:45 | Outpatient (CLI) | payer MEDICARE ==
--- NOTE | 2024-05-18 10:38 | Mammography Report ---
BILATERAL DIGITAL SCREENING MAMMOGRAM 3D/2D: 05/15/2024 CLINICAL: Routine screening. Comparison is made to exams dated: 05/16/2022 mammogram, 03/07/2021 mammogram, and 06/19/2019 mammogram - [facility]. There are scattered areas of fibroglandular density in both breasts (category b / 25%-50% glandular t issue). There is a biopsy clip in the right breast. No significant masses, calcifications, or other findings are seen in either breast. There has been no significant interval change. IMPRESSION: NEGATIVE There is no mammographic evidence of malignancy. A 1 year screening mammogram is recommended. Based on the Tyrer Cuzick model (a risk assessment model) the patient's lifetime risk is 2.7% and her 10 year risk is 0.0%. According to the ACR, ACS, and NCCN guidelines, an annual breast MRI exam alejandro g with mammogram is recommended if the patient's lifetime risk is 20% or greater. This exam was interpreted at Station ID: [id number]. NOTE: For mammograms, a report in lay terms will be sent to the patient. Approximately 15% of breast malignancies will not be visualized mammographically. In the management of a palpable breast mass, a negative mammogram must not discourage biopsy of a clinically suspicious lesion. Electronically Signed By: Martín cyr/tristian:05/15/2024 15:49:44 letter sent: No_Letter ACR BI-RADS Category 1: Negative 3341F PARENCHYMAL PATTERN: (A) - The breast(s) demonstrate(s) scattered fibroglandular densities. BI-RADS CATEGORY: (1) - 1 RECOMMENDATION: (ANNUAL) - Recommend routine annual screening mammography. [id number] 1 year screening LATERALITY: (B)
== END 2024-05-15 12:46 | disposition home or self-care (01) ==
LOC: DI 12:45
DX: Z12.31 Encounter for screening mammogram for malignant neoplasm of breast (principal); R92.323 Mammographic fibroglandular density, bilateral breasts